=== PATIENT | female | born 1960 | race Caucasian/White ===

== ENCOUNTER → 2016-08-03 | Outpatient (CLI) | payer BC ==
[~2016-08-03] VITALS: Ht 154.9 cm; Wt 98.2 kg
[~2016-08-03] MED LIST: ALEVE 220MG220 MG PO; ALEVE220 MG PO; AMOXICILLIN 50500 MG PO; ASPIRIN 32325 MG/TA1 PO; B-12 100 MCG PO; CLARITIN 1010 MG/TAB PO; FLUTICAS P0.05 MG/AC NS; HAIRSKINNAILS PO; LEVAQUIN 5500 MG/TA1 PO; LORTAB 5/500 501 TAB PO; MULTIPLE VITAMI1 CAP PO; MULTIPLE VITAMI1 TA5 PO; NATURE'S BLE1000 MCG PO; NORCO 325 MG-51 TAB PO; VITAMIN D1000 IU PO; ZITHROMAX Z PA250 MG PO
[2016-08-03 14:27] VITALS: BP 130/76; PULSE 72
[2016-08-03 14:50] VITALS: BP 130/76; PULSE 72
[2016-12-11 14:04] VITALS: BP 140/80; PULSE 64
== END ==
LOC: LIGHT 14:25
DX: E88.81 Metabolic syndrome and other insulin resistance (principal); E78.4 Other hyperlipidemia; E66.09 Other obesity due to excess calories; Z68.39 Body mass index [BMI] 39.0-39.9, adult; I10 Essential (primary) hypertension

== ENCOUNTER → 2016-08-18 | Outpatient (CLI) | payer BC ==
[~2016-08-18] VITALS: Ht 154.9 cm; Wt 94.5 kg
[2016-08-18 09:17] VITALS: BP 163/91; PULSE 88
== END ==
LOC: COL.RAD 08:51
DX: R22.1 Localized swelling, mass and lump, neck (principal)

== ENCOUNTER → 2016-08-31 | Outpatient (CLI) | payer BC | LOC: ZCOL.LAB 20:19 | DX: L02.11 Cutaneous abscess of neck (principal) ==

== ENCOUNTER → 2016-09-13 | Outpatient (CLI) | payer BC | LOC: ZCOL.LAB 17:24 | DX: L02.11 Cutaneous abscess of neck (principal) ==

== ENCOUNTER → 2016-12-21 | Outpatient (CLI) | payer BC ==
[~2016-12-21] VITALS: Ht 154.9 cm; Wt 98.9 kg
[2016-12-21 14:33] VITALS: BP 131/71; PULSE 84
== END ==
LOC: LIGHT 13:57
DX: E88.81 Metabolic syndrome and other insulin resistance (principal); E78.5 Hyperlipidemia, unspecified; E66.01 Morbid (severe) obesity due to excess calories; Z68.41 Body mass index [BMI] 40.0-44.9, adult; Z71.3 Dietary counseling and surveillance; I10 Essential (primary) hypertension

== ENCOUNTER 2017-01-30 13:58 | Day surgery (SDC) | payer BC ==
[~2017-01-30] VITALS: Ht 157.5 cm; Wt 98.1 kg
[~2017-01-30 13:58] MED LIST changes: -HAIRSKINNAILS PO; -VITAMIN D1000 IU PO
[2017-01-30] MEDS ORDERED: HAIRSKINNAILS PO (14:20)
[2017-01-30] MEDS ORDERED: VITAMIN D1000 IU PO (14:20)
[2017-01-30 14:48] VITALS: BP 146/86; PULSE 80; TEMP 97.8
[2017-01-30 15:50] VITALS: BP 122/72; PULSE 85; TEMP 97.9
[2017-01-30 16:05] VITALS: BP 125/75; PULSE 92
[2017-01-30 16:20] VITALS: BP 119/66; PULSE 83
== END 2017-01-30 16:50 | disposition home or self-care (01) ==
LOC: SDCO 13:58
DX: Z86.010 Personal history of colon polyps (principal); K58.9 Irritable bowel syndrome, unspecified
CPT/HCPCS: OP; J2250; J2405; J3010; J7030

== ENCOUNTER → 2017-02-01 | Outpatient (CLI) | payer BC ==
[~2017-02-01] VITALS: Ht 154.9 cm; Wt 98.2 kg
[~2017-02-01] MED LIST changes: +HAIRSKINNAILS PO; +VITAMIN D1000 IU PO
[2017-02-01 13:46] VITALS: BP 130/80; PULSE 72
== END ==
LOC: LIGHT
DX: E88.81 Metabolic syndrome and other insulin resistance (principal); E78.5 Hyperlipidemia, unspecified; E66.01 Morbid (severe) obesity due to excess calories; Z68.41 Body mass index [BMI] 40.0-44.9, adult; Z71.3 Dietary counseling and surveillance; I10 Essential (primary) hypertension

== ENCOUNTER → 2017-02-08 | Outpatient (CLI) | payer BC | LOC: MC.RAD 02-01 14:20 | DX: Z12.31 Encounter for screening mammogram for malignant neoplasm of breast (principal); R92.0 Mammographic microcalcification found on diagnostic imaging of breast; Z98.82 Breast implant status ==

== ENCOUNTER → 2017-02-12 | Outpatient (CLI) | payer BC | LOC: MC.RAD 13:56 | DX: R92.1 Mammographic calcification found on diagnostic imaging of breast (principal); Z98.82 Breast implant status ==

== ENCOUNTER 2021-04-24 18:10 | Emergency (ER) | payer BC ==
[~2021-04-24] VITALS: Ht 154.9 cm; Wt 90.0 kg
[2021-04-24 18:29] VITALS: TEMP 98.1
[2021-04-24 19:11] LABS: BASO # 0.1 (0.0-0.2); BASO % 0.7 % (0.0-2.0); EOS # 0.2 (0.0-0.7); EOS % 1.2 % (0-4.0); GRAN # 9.4 (1.4-6.5); GRAN % 74.8 % (42.2-75.2); HEMATOCRIT 42.9 % (37.0-47.0); HEMOGLOBIN 14.2 g/dl (12.5-16.0); LYMPH # 2.2 (1.2-3.4); LYMPH % 17.3 % (20.0-51.0); MEAN CELL VOLUME 86 fl (80.0-100.0); MEAN CORPUSCULAR HEMOGLOBIN 29 pg (27.0-31.0); MEAN CORPUSCULAR HGB CONC 33 g/dl (33.0-37.0); MEAN PLATELET VOLUME 8.2 fl (7.4-10.4); MONO # 0.7 (0.1-0.6); MONO % 5.4 % (1.7-9.3); PLATELET COUNT 310 K/mm3 (130-400); RED BLOOD COUNT 4.99 M/mm3 (4.10-5.30); REDCELL DISTRIBUTION WIDTH-CV 13.1 % (11.5-14.5)
[2021-04-24 19:35] LABS: ALBUMIN 3.6 gm/dL (3.5-5.0); BILIRUBIN,TOTAL 0.2 mg/dL (0.2-1.2); C-REACTIVE PROTEIN 0.8 mg/dL (0.00-0.50); CALCIUM 9.4 mg/dL (8.4-10.2); CREATININE, serum 0.7 mg/dL (0.57-1.11); POTASSIUM 3.8 mmol/L (3.5-4.5)
[2021-04-24 20:30] LABS: COLLECTION METHOD CLEAN CATCH
[2021-04-24 20:42] LABS: MUCOUS Present /lpf; PH 5 (5-8); URINE APPEARANCE Cloudy; URINE BACTERIA None Seen /hpf; URINE BILIRUBIN Negative (NEGATIVE); URINE BLOOD Negative (NEGATIVE); URINE CALCIUM OXALATE CRYSTAL Present /hpf; URINE COLOR Yellow; URINE GLUCOSE Negative (NEGATIVE); URINE KETONE Negative (NEGATIVE); URINE LEUKOCYTE ESTERASE Negative (NEGATIVE); URINE NITRATE Negative (NEGATIVE); URINE PROTEIN(semi-quant) Negative (NEGATIVE)
[2021-04-24] MEDS ORDERED: ZOFRAN ODT4 MG PO (23:20)
[2021-04-24] MEDS ORDERED: PERCOCET 325 MG1 TA2 PO (23:20)
[2021-04-24 23:26] VITALS: BP 132/65; PULSE 87
[2021-04-25] MEDS ORDERED: ALDACTONE 25MG25 M1 PO (15:20)
[2021-04-25] MEDS ORDERED: VTAMINC250TA PO (15:21)
[2021-04-25] MEDS ORDERED: VITAMIN B12 781 TAB PO (15:21)
[2021-04-25] MEDS ORDERED: PRILOSEC10 MG PO (15:22)
[2021-04-25] MEDS ORDERED: AMOXICILLIN 8751 TAB PO (17:24)
[2021-04-25] MEDS ORDERED: NORCO 325 MG-51 TAB PO (17:24)
[2021-04-25] MEDS ORDERED: PYRIDIUM 100MG100 MG PO (17:24)
== END 2021-04-24 23:26 | disposition home or self-care (01) ==
LOC: COL.ER 18:10
PROVIDERS: Nurse Practitioner
DX: N13.2 Hydronephrosis with renal and ureteral calculous obstruction (principal); I10 Essential (primary) hypertension; Z90.710 Acquired absence of both cervix and uterus
CPT/HCPCS: J1170; J1885; J2405; J7030; Q9967

== ENCOUNTER 2021-04-25 14:04 | Day surgery (SDC) | payer BC ==
[~2021-04-25] VITALS: Ht 154.9 cm; Wt 91.9 kg
[~2021-04-25 14:04] MED LIST changes: +PERCOCET 325 MG1 TA2 PO; +ZOFRAN ODT4 MG PO
[2021-04-25 14:40] VITALS: BP 140/73; PULSE 74; TEMP 98.1
[2021-04-25] MEDS ORDERED: ALDACTONE 25MG25 M1 PO (15:20)
[2021-04-25] MEDS ORDERED: VTAMINC250TA PO (15:21)
[2021-04-25] MEDS ORDERED: VITAMIN B12 781 TAB PO (15:21)
[2021-04-25] MEDS ORDERED: PRILOSEC10 MG PO (15:22)
--- NOTE | 2021-04-25 16:31 | NUR ---
Patient is assisted to the restroom by staff. She voids and returns to room.
[2021-04-25] MEDS ORDERED: PYRIDIUM 100MG100 MG PO (17:24)
[2021-04-25] MEDS ORDERED: NORCO 325 MG-51 TAB PO (17:24)
[2021-04-25] MEDS ORDERED: AMOXICILLIN 8751 TAB PO (17:24)
[2021-04-25 18:20] VITALS: BP 100/57; PULSE 76
[2021-04-25 18:35] VITALS: BP 122/63; PULSE 68
[2021-04-25 18:50] VITALS: BP 126/61; PULSE 67; TEMP 97.8
--- NOTE | 2021-04-25 19:03 | NUR ---
Patient up from OR at 1820. Alert and oriented x 3. Assessment complete. Denies pain at this time. Patient ambulated to restroom with steady gait and SBA. Post op VSS and post op fluids infusing per orders. Patient denies needs at this time. Will report off to marketing teacher.
[2021-04-25 19:05] VITALS: BP 126/61; PULSE 62; TEMP 97.9
[2021-04-25 19:35] VITALS: BP 113/50; PULSE 74
== END 2021-04-25 20:05 | disposition home or self-care (01) ==
LOC: SDCO 14:04 → SURG 18:23 → SDCO 20:05
DX: N13.2 Hydronephrosis with renal and ureteral calculous obstruction (principal); I10 Essential (primary) hypertension; K21.9 Gastro-esophageal reflux disease without esophagitis; Z20.822 Contact with and (suspected) exposure to COVID-19; Z79.899 Other long term (current) drug therapy; N39.0 Urinary tract infection, site not specified
CPT/HCPCS: OP; C1769; C2617; J0696; J1100; J1885; J2250; J2405; J2704; J7120; Q9967